=== PATIENT | male | born 1990 | race African-American/Black ===

== ENCOUNTER 2018-03-26 19:38 | Emergency (ER) | payer SELFPAY ==
[~2018-03-26] VITALS: Ht 185.4 cm; Wt 100.0 kg
[~2018-03-26 19:38] MED LIST: IBUPROFEN 200MG TABLET ONE
[2018-03-26 20:30] VITALS: BP 139/79
[2018-03-26] MEDS ORDERED: IBUPROFEN 600MG TABLET PO ONE (20:30)
== END 2018-03-26 21:00 | disposition home or self-care (01) ==
LOC: ER 19:38
DX: S39.012A Strain of muscle, fascia and tendon of lower back, initial encounter (principal); M25.561 Pain in right knee; V13.4XXA Pedal cycle driver injured in collision with car, pick-up truck or van in traffic accident, initial encounter; Y93.89 Activity, other specified; Y92.488 Other paved roadways as the place of occurrence of the external cause
CPT/HCPCS: 99282